=== PATIENT | male | born 1990 | race Caucasian/White ===

== ENCOUNTER 2017-01-06 07:41 | Emergency (ER) | payer OTHER ==
[2017-01-06] MEDS ORDERED: MOTRIN PO ONE (08:48)
--- NOTE | 2017-01-06 09:03 | XRay Report ---
LUMBOSACRAL SPINE, 3 VIEWS: History: Back pain Findings: The vertebral bodies, disk spaces and posterior elements are intact. No compression deformity or malalignment. The SI joints are symmetric and unremarkable. Impression: 1. No evidence for acute injury to the lumbar spine.
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
[2017-01-06 09:42] VITALS: BP 122/68
== END 2017-01-06 09:42 | disposition home or self-care (01) ==
LOC: ED 07:41
DX: M54.5 Low back pain (principal); M79.601 Pain in right arm; V49.40XA Driver injured in collision with unspecified motor vehicles in traffic accident, initial encounter; Y93.89 Activity, other specified; Y99.9 Unspecified external cause status; Y92.410 Unspecified street and highway as the place of occurrence of the external cause
CPT/HCPCS: 72100